=== PATIENT | male | born 1955 | race Caucasian/White ===

== ENCOUNTER 2019-03-04 12:36 | Emergency (ER) | payer OTHER ==
[~2019-03-04] VITALS: Ht 170.2 cm; Wt 94.5 kg
[2019-03-04 12:38] VITALS: Ht 170.2 cm; Wt 94.5 kg
[2019-03-04] MEDS ORDERED: LEVO125T7 PO (13:26)
[2019-03-04] MEDS ORDERED: OMEP20CA16 PO (13:27)
[2019-03-04] MEDS ORDERED: HYDROCODONE/APAP (10/325) TAB PO ONE (13:30)
[2019-03-04] MEDS ORDERED: IBUPROFEN 800 MG TAB PO ONE (13:30)
[2019-03-04] MEDS: morphine 4 MG/ML VIAL IV STA ×2 (14:04→14:50)
[2019-03-04] MEDS ORDERED: KETOROLAC 30 MG INJ IV STA (14:04)
[2019-03-04] MEDS ORDERED: ONDANSETRON 4 MG INJ IV STA (14:04)
[2019-03-04] MEDS ORDERED: IBUP800T48 PO (15:56)
--- NOTE | 2019-03-04 16:03 | ERD ---
ER Documentation Chief Complaint Chief Complaint BIB RA81: p fall at [facility], hit back of head; no KO no LOC. 03/03CP HPI This is a very pleasant 63-year-old male who presents to the emergency room after he had a mechanical slip and fall at [facility] just prior to arrival. The patient stated he had slipped on a floor that had soap on it. He fell and landed on the back of his head. He stated he had a brief loss of consciousness contrary to the triage note. He stated this lasted for roughly 10 seconds. Afterwards he was having a significant amount of pain in the back of his head and neck. He denied any numbness or tingling of his upper or lower extremities. He also stated he felt pain over at the midportion of his chest. He had no chest pressure. He stated that the pain was worse when he moves his upper extremities. ROS All systems reviewed and are negative except as per history of present illness. Medications Home Meds Active Scripts Ibuprofen* (Motrin*) 800 Mg Tab, 800 MG PO Q6H PRN for PAIN AND OR ELEVATED TEMP, #30 TAB Prov:TATI MCDERMOTT MD 03/04/19 Reported Medications Omeprazole* (Omeprazole*) 20 Mg Capsule.dr, 20 MG PO DAILY, #30 CAP 03/04/19 Levothyroxine Sodium* (Levothyroxine Sodium*) 125 Mcg Tablet, 125 MCG PO BEFORE BREAKFAST, #30 TAB 03/04/19 Allergies Allergies: Coded Allergies: No Known Allergy (Unverified , 03/04/19) PMhx/Soc Medical and Surgical Hx: pt denies Medical Hx, pt denies Surgical Hx Hx Alcohol Use: No Hx Substance Use: No Hx Tobacco Use: No Smoking Status: Never smoker Physical Exam Vitals Vital Signs Date Temp Pulse Resp B/P (MAP) Pulse Ox O2 O2 Flow FiO2 Time Delivery Rate 03/04/19 67 20 173/94 97 14:40 (120) 03/04/19 98.3 73 22 214/94 97 12:38 (134) Physical Exam Constitutional:Well-developed. Well-nourished. HEENT:Normocephalic. Atraumatic with no nasal septal hematoma. No hemotympanum.Pupils were equal round reactive to light. Moist mucous membranes.No tonsillar exudates. Neck: No nuchal rigidity. No lymphadenopathy. Posterior cervical spine tenderness over C3-C4 with no step-offs Respiratory: Not using accessory muscles of respiration.Lungs were clear to auscultation bilaterally. No rhonchi. No rales. No wheezing. Cardiovascular: Regular rate regular rhythm.No murmurs. No rubs were appreciated.S1, S2 normal. Distal pulses are palpable 2+ bilaterally. Producible midsternal chest tenderness with no obvious bony deformities and no crepitus no ecchymosis no flail chest. GI: Abdomen was soft. Nontender. Non Distended. No pulsatile abdominal masses or bruits. No rebound. No guarding. Bowel sounds were present and normal. Muscle skeletal: Full range of motion of both the upper and lower extremities bilaterally.Normal muscle tone.No assymetrical calf tenderness or swelling. Skin: No petechia, no purpura. No lesions on the palms or the soles of the feet. No maculopapular rash. NEURO: Patient was alert, awake, orientated x3.No facial droop. Gait observed and normal with no ataxia.Speech had regular rate and rhythm. No focal neurological deficits. Result Diagram: 03/04/19 1407 03/04/19 1407 Results 24 hrs Laboratory Tests Test 03/04/19 14:07 White Blood Count 7.2 10^3/ul Red Blood Count 5.10 10^6/ul Hemoglobin 15.4 g/dl Hematocrit 44.9 % Mean Corpuscular Volume 88.0 fl Mean Corpuscular Hemoglobin 30.2 pg Mean Corpuscular Hemoglobin Concent 34.3 g/dl Red Cell Distribution Width 11.9 % Platelet Count 239 10^3/UL Mean Platelet Volume 10.3 fl Immature Granulocytes % 1.000 % Neutrophils % 62.4 % Lymphocytes % 25.4 % Monocytes % 6.5 % Eosinophils % 3.7 % Basophils % 1.0 % Nucleated Red Blood Cells % 0.0 /100WBC Immature Granulocytes # 0.070 10^3/ul Neutrophils # 4.5 10^3/ul Lymphocytes # 1.8 10^3/ul Monocytes # 0.5 10^3/ul Eosinophils # 0.3 10^3/ul Basophils # 0.1 10^3/ul Nucleated Red Blood Cells # 0.0 10^3/ul Prothrombin Time 13.2 Sec Prothrombin Time Ratio 1.0 INR International Normalized Ratio 0.99 Activated Partial Thromboplast Time 24.2 Sec Sodium Level 143 mmol/L Potassium Level 3.8 mmol/L Chloride Level 107 mmol/L Carbon Dioxide Level 27 mmol/L Anion Gap 9 Blood Urea Nitrogen 18 mg/dl Creatinine 0.94 mg/dl Est Glomerular Filtrat Rate mL/min > 60 mL/min Glucose Level 137 mg/dl Calcium Level 8.9 mg/dl Total Bilirubin 0.5 mg/dl Direct Bilirubin 0.00 mg/dl Indirect Bilirubin 0.5 mg/dl Aspartate Amino Transf (AST/SGOT) 47 IU/L Alanine Aminotransferase (ALT/SGPT) 69 IU/L Alkaline Phosphatase 88 IU/L Creatine Kinase 117 IU/L Creatine Kinase Index 0.6 Creatinine Kinase MB (Mass) 0.65 ng/ml Troponin I < 0.012 ng/ml B-Type Natriuretic Peptide 21 PG/ML Total Protein 7.8 g/dl Albumin 4.2 g/dl Globulin 3.60 g/dl Albumin/Globulin Ratio 1.16 Current Medications Medications Dose Sig/Howard Start Time Status Last (Trade) Ordered Route PRN Stop Time Admin Dose Reason Admin 1 tab ONCE ONCE 03/04/19 Cancel Acetaminophen PO 13:30 / 03/04/19 13:31 Hydrocodone Bitart ([place] (10/325)) Ibuprofen 800 mg ONCE ONCE 03/04/19 Cancel (Motrin) PO 13:30 03/04/19 13:31 Morphine 4 mg ONCE STAT 03/04/19 DC Sulfate IV 14:04 (morphine) 03/04/19 14:05 Ondansetron 4 mg ONCE STAT 03/04/19 DC 03/04/19 HCl (Zofran IV 14:04 14:50 Inj) 03/04/19 14:05 Ketorolac 30 mg ONCE STAT 03/04/19 DC 03/04/19 Tromethamine IV 14:04 14:50 (Toradol) 03/04/19 14:06 Procedures/MDM This is a 63-year-old male that presented to the emergency department with blunt head trauma. Utilizing the Nexus criteria radiographic imaging was obtained of the patient's head and cervical spine with no obvious fractures or intracerebral hemorrhage. The patient had also complained of chest pain which was a rep roducible chest tenderness. He said he did not remember any blunt trauma of an object hitting his chest. I obtained an EKG which showed no evidence of myocardial ischemia and cardiac troponin was normal. 12 Lead EKG tracing ordered and reviewed by myself showed: Normal sinus rhythm of 66 bpm and no arrhythmia. [place] interval normal. QRS duration normal. No ST segment elevation No ST segment depression. No changes consistent with acute ischemia. The patient received intravenous morphine and Toradol for analgesia control with improvement of his symptoms. I did feel his symptoms again more likely secondary to cervical neck sprain and closed head injury with concussion. The patient was discharged home in fair condition. They were instructed to return to the emergency department at any time if there was any worsening of their condition. The patient stated they would follow up with their PCP in the next 24-48 hours to initiate a suitable medication regimen under the care of their PCP as well as to allow their PCP to monitor any drug reactions. The patient was discharged home with prescriptions after they gave informed consent to the new medication. They were also fully informed by myself on the adverse effects and adverse drug interactions in order to provide adequate safeguards to prevent possible adverse reactions to medications. Departure Diagnosis: Primary Impression: Concussion Encounter type: initial encounter Loss of consciousness presence/duration: with LOC of 30 min or less Qualified Codes: S06.0X1A - Concussion with loss of consciousness of 30 minutes or less, initial encounter Additional Impressions: Sprain of cervical neck Encounter type: initial encounter Qualified Codes: S13.9XXA - Sprain of joints and ligaments of unspecified parts of neck, initial encounter Chest wall pain Condition: Fair Patient Instructions: Costochondritis, Whiplash, Concussion W/ Wake Up TATI MCDERMOTT MD Mar 04, 2019 16:03
[2019-03-04 16:16] VITALS: BP 154/86; PULSE 63; RESP 20
== END 2019-03-04 16:17 | disposition home or self-care (01) ==
LOC: E/R 12:36
DX: S06.0X1A Concussion with loss of consciousness of 30 minutes or less, initial encounter (principal); S13.9XXA Sprain of joints and ligaments of unspecified parts of neck, initial encounter; S29.9XXA Unspecified injury of thorax, initial encounter; R07.89 Other chest pain; W01.198A Fall on same level from slipping, tripping and stumbling with subsequent striking against other object, initial encounter; Y92.9 Unspecified place or not applicable
CPT/HCPCS: 36415; 70450; 71045; 72125; 80053; 82550; 82553; 83880; 84484; 85025; 85610; 85730; 93005; 96374; 96375; 99285; J1885; J2405; J2270